=== PATIENT | female | born 1980 | race Hispanic/Latino ===

== ENCOUNTER 2021-07-04 01:11 | Emergency (ER) | payer SELFPAY ==
[2021-07-04 02:06] LABS: Absolute Lymphocytes (CBC) 1.9 K/uL (0.7-4.9); Basophils % 1.3 % (0-1.3); Lymphocytes % 32.5 % (15.3-44.8); MPV 8.3 fL (7.6-11.3); RBC Red Blood Cell Count 4.24 M/uL (3.86-4.86)
[2021-07-04 02:35] LABS: Albumin 3.9 g/dL (3.4-5.0); Bilirubin Direct 0.3 mg/dL (0-0.2); Potassium 3.4 mmol/L (3.5-5.1); Protein, Total 7.7 g/dL (6.4-8.2)
--- NOTE | 2021-07-04 03:27 | ER ---
Nurse's Notes [facility] Name: Aki Hughes Age: 40 yrs Sex: Female : 1980 Arrival Date: 07/04/2021 Time: :14 Bed 5 Private MD: Diagnosis: Abdominal pain. GERD Presentation: 07/04 01:28 Chief complaint: Patient states: she is having some abdominal burning radiating around bb to her back x 2 months with nausea. Coronavirus screen: At this time, the client does not indicate any symptoms associated with coronavirus-19. Ebola Screen: No symptoms or risks identified at this time. Initial Sepsis Screen: Does the patient meet any 2 criteria? No. Patient's initial sepsis screen is negative. Does the patient have a suspected source of infection? No. Patient's initial sepsis screen is negative. Risk Assessment: Do you want to hurt yourself or someone else? Patient reports no desire to harm self or others. Onset of symptoms was April 2021. 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 - Social history:: Smoking status: Patient reports the use of cigarette tobacco products, smokes one pack cigarettes per day. Patient uses alcohol, occasionally. Patient/guardian denies using street drugs. Screenin:57 Abuse screen: Denies threats or abuse. Denies injuries from another. Nutritional lp1 screening: No deficits noted. Tuberculosis screening: No symptoms or risk factors identified. Fall Risk None identified. Assessment: 01:56 General: Appears in no apparent distress. Behavior is calm, cooperative. Pain: Pain: lp1 Complains of pain in general abdomen Quality of pain is described as burning. Neuro: Level of Consciousness is awake, alert, obeys commands. Cardiovascular: Patient's skin is warm and dry. Respiratory: Respiratory effort is even, unlabored. GI: Abdomen is round non-distended, Bowel sounds present X 4 quads. Reports lower abdominal pain, upper abdominal pain. : No signs and/or symptoms were reported regarding the genitourinary system. EENT: No signs and/or symptoms were reported regarding the EENT system. Derm: Skin is pink, warm \T\ dry. Musculoskeletal: No deficits noted. 03:43 Reassessment: Patient appears in no apparent distress at this time. Patient is alert, lp1 oriented x 3, equal unlabored respirations, skin warm/dry/pink. Patient states feeling better. Vital Signs: 01:28 BP 142 / 96; Pulse 71; Resp 16 S; Temp 97.8(O); Pulse Ox 100% on R/A; Weight 62.6 kg bb (R); Height 5 ft. 5 in. (165.10 cm) (R); Pain 8/10; 02:30 BP 127 / 93; Pulse 70; Resp 16; Pulse Ox 100% on R/A; lp1 03:30 BP 139 / 96; Pulse 72; Resp 16; Pulse Ox 100% on R/A; lp1 01:28 Body Mass Index 22.96 (62.60 kg, 165.10 cm) bb ED Course: 01:14 Patient arrived in ED. bp1 01:22 Rico Aquino MD is Attending Physician. pkl 01:30 Triage completed. bb 01:30 Arm band placed on Patient placed in an exam room, on a stretcher, on pulse oximetry. bb 01:55 Initial lab(s) drawn, by pa, sent to lab. Inserted saline lock: 20 gauge in right lp1 antecubital area, using aseptic technique. Blood collected. 01:56 Ana Maria Avila, TIO is Primary Nurse. lp1 01:57 Patient has correct armband on for positive identification. lp1 03:11 ETOH Level Sent. bs2 03:18 US Abdomen Limited Sent. bs2 03:21 US Abdomen Limited In Process Unspecified. EDMS 03:42 No provider procedures requiring assistance completed. IV discontinued, No lp1 redness/swelling at site. Pressure dressing applied. Administered Medications: 01:55 Drug: NS 0.9% 1000 ml Route: IV; Rate: 125 ml/hr; Site: right antecubital; lp1 03:44 Follow up: IV Status: Completed infusion; IV converted to saline lock; IV Intake: 500ml lp1 01:55 Drug: GI Cocktail without - (Maalox Suspension 30 ml, Lidocaine Liquid 2 % 15 bs2 ml) Route: PO; 03:41 Follow up: Response: No adverse reaction lp1 03:41 Not Given (Patient Refused): Zofran (Ondansetron) 4 mg IVP once; over 2 minutes lp1 03:41 Drug: K-Dur (potassium chloride) 20 mEq Route: PO; lp1 03:43 Follow up: Response: Medication administered at discharge. lp1 03:41 Drug: Tylenol 650 mg Route: PO; lp1 03:44 Follow up: Response: Medication administered at discharge. lp1 03:41 Drug: Motrin (ibuprofen) 400 mg Route: PO; lp1 03:44 Follow up: Response: Medication administered at discharge. lp1 Intake: 03:44 IV: 500ml; Total: 500ml. lp1 Outcome: 03:27 Discharge ordered by . pkl 03:42 Discharged to home ambulatory. lp1 03:42 Condition: good 03:42 Discharge instructions given to patient, Instructed on discharge instructions, follow up and referral plans. medication usage, Demonstrated understanding of instructions, follow-up care, medications, Prescriptions given X 2. 03:43 Patient left the ED. lp1 Signatures: Dispatcher [employer] EDMS Rico Aquino MD MD pkl Vandana Bhatti, RN RN Ana Maria Lyon RN RN lp1 Margareth Dunbar Bridget, RN RN bs2 Corrections: (The following items were deleted from the chart) 01:58 01:56 Pain: lp1 lp1 01:58 01:56 Neuro: Level of Consciousness is awake, alert, obeys commands, lp1 lp1
--- NOTE | 2021-07-04 03:27 | EDPHYS ---
Physician Documentation [facility] Name: Aki Hughes Age: 40 yrs Sex: Female : 1980 Arrival Date: 07/04/2021 Time: :14 Bed 5 Private MD: ED Physician Rico Aquino HPI: 07/04 01:37 This 40 yrs old Female presents to ER via Ambulatory with complaints of pkl Abdominal Burn. 01:37 The patient presents with abdominal pain in the upper abdomen. Onset: The pkl symptoms/episode began/occurred 2 month(s) ago. The symptoms do not radiate. 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 - Social history:: Smoking status: Patient reports the use of cigarette tobacco products, smokes one pack cigarettes per day. Patient uses alcohol, occasionally. Patient/guardian denies using street drugs. ROS: 01:37 Eyes: Negative for injury, pain, redness, and discharge, ENT: Negative for injury, pkl pain, and discharge, Neck: Negative for injury, pain, and swelling, Cardiovascular: Negative for chest pain, palpitations, and edema, Respiratory: Negative for shortness of breath, cough, wheezing, and pleuritic chest pain. 01:37 Abdomen/GI: Positive for abdominal pain, of the right upper quadrant and left upper quadrant. 01:37 Back: Negative for acute changes. 01:37 : Negative for urinary symptoms. 01:37 MS/extremity: Negative for acute changes. 01:37 Skin: Negative for rash. 01:37 Neuro: Negative for altered mental status, loss of consciousness. Exam: 01:37 Head/Face: Normocephalic, atraumatic. Eyes: Pupils equal round and reactive to light, pkl extra-ocular motions intact. Lids and lashes normal. Conjunctiva and sclera are non-icteric and not injected. Cornea within normal limits. Periorbital areas with no swelling, redness, or edema. ENT: Nares patent. No nasal discharge, no septal abnormalities noted. Tympanic membranes are normal and external auditory canals are clear. Oropharynx with no redness, swelling, or masses, exudates, or evidence of obstruction, uvula midline. Mucous membranes moist. Neck: Trachea midline, no thyromegaly or masses palpated, and no cervical lymphadenopathy. Supple, full range of motion without nuchal rigidity, or vertebral point tenderness. No Meningismus. Chest/axilla: Normal chest wall appearance and motion. Nontender with no deformity. No lesions are appreciated. Cardiovascular: Regular rate and rhythm with a normal S1 and S2. No gallops, murmurs, or rubs. Normal PMI, no JVD. No pulse deficits. Respiratory: Lungs have equal breath sounds bilaterally, clear to auscultation and percussion. No rales, rhonchi or wheezes noted. No increased work of breathing, no retractions or nasal flaring. 01:37 Abdomen/GI: Bowel sounds: normal, Palpation: soft, mild abdominal tenderness, in the right upper quadrant and left upper quadrant. 01:37 Back: Exam negative for acute changes. 01:37 : Exam negative for acute changes. 01:37 Musculoskeletal/extremity: Exam is negative for acute changes. 01:37 Skin: Exam negative for rash. 01:37 Neuro: Orientation: is normal, Mentation: is normal, Cranial nerves: grossly normal, Motor: is normal. Vital Signs: 01:28 BP 142 / 96; Pulse 71; Resp 16 S; Temp 97.8(O); Pulse Ox 100% on R/A; Weight 62.6 kg bb (R); Height 5 ft. 5 in. (165.10 cm) (R); Pain 8/10; 02:30 BP 127 / 93; Pulse 70; Resp 16; Pulse Ox 100% on R/A; lp1 03:30 BP 139 / 96; Pulse 72; Resp 16; Pulse Ox 100% on R/A; lp1 01:28 Body Mass Index 22.96 (62.60 kg, 165.10 cm) MDM: 01:22 Patient medically screened. pkl 03:23 Data reviewed: vital signs, nurses notes, lab test result(s), radiologic studies, pkl ultrasound. ED course: Discussed lab and imaging studies with patient. Advised to follow up with [employer] [employer] [facility] in 2 to 3 days for further evaluations. To return if necessary. Patient understood instructions. 07/04 01:35 Order name: Basic Metabolic Panel; Complete Time: 02:42 pkl 07/04 01:35 Order name: CBC with Diff; Complete Time: 02:09 pkl 07/04 01:35 Order name: Hepatic Function; Complete Time: 02:42 pkl 07/04 01:35 Order name: Lipase; Complete Time: 02:42 pkl 07/04 01:40 Order name: ETOH Level pkl 07/04 01:40 Order name: UDS pkl 07/04 01:36 Order name: US Abdomen Limited pkl 07/04 01:40 Order name: Alcohol Serum/Plasma; Complete Time: 02:20 EDMS 07/04 01:35 Order name: IV Saline Lock; Complete Time: 01:55 pkl 07/04 01:35 Order name: Labs collected and sent; Complete Time: 01:55 pkl Administered Medications: 01:55 Drug: NS 0.9% 1000 ml Route: IV; Rate: 125 ml/hr; Site: right antecubital; lp1 03:44 Follow up: IV Status: Completed infusion; IV converted to saline lock; IV Intake: 500ml lp1 01:55 Drug: GI Cocktail without - (Maalox Suspension 30 ml, Lidocaine Liquid 2 % 15 bs2 ml) Route: PO; 03:41 Follow up: Response: No adverse reaction lp1 03:41 Not Given (Patient Refused): Zofran (Ondansetron) 4 mg IVP once; over 2 minutes lp1 03:41 Drug: K-Dur (potassium chloride) 20 mEq Route: PO; lp1 03:43 Follow up: Response: Medication administered at discharge. lp1 03:41 Drug: Tylenol 650 mg Route: PO; lp1 03:44 Follow up: Response: Medication administered at discharge. lp1 03:41 Drug: Motrin (ibuprofen) 400 mg Route: PO; lp1 03:44 Follow up: Response: Medication administered at discharge. lp1 Disposition Summary: 07/04/21 03:27 Discharge Ordered Location: Home pkl Problem: new pkl Symptoms: have improved pkl Condition: Stable pkl Diagnosis - Abdominal pain. GERD pkl Followup: pkl - With: Private Physician - When: 2 - 3 days - Reason: Re-evaluation by your physician Discharge Instructions: - Discharge Summary Sheet pkl Forms: - Medication Reconciliation Form pkl - Thank You Letter pkl - Antibiotic Education pkl - Prescription Opioid Use pkl Prescriptions: - Protonix 40 mg Oral Tablet - take 1 tablet by ORAL route once daily; 30 tablet; Refills: 0, Product pkl Selection Permitted - Zofran 4 mg Oral Tablet - take 1 tablet by ORAL route every 12 hours As needed; 10 tablet; Refills: 0, pkl Product Selection Permitted Signatures: Dispatcher [employer] Rico Thomson MD MD pkl Vandana Bhatti RN RN bb Ana Maria Avila RN RN lp1 Bonita Goodman RN RN bs2
[2021-07-04] MEDS ORDERED: POTASSIUM CL SA 10 MEQ TAB PO ONE (03:39)
[2021-07-04] MEDS ORDERED: IBUPROFEN 400 MG TAB ONE (03:39)
[2021-07-04] MEDS ORDERED: ACETAMINOPHEN 325 MG TABLET ONE (03:39)
[2021-07-04 03:56] VITALS: TEMP 97.8; O2SAT 100
[2021-07-04 04:00] VITALS: BP 139/96
--- NOTE | 2021-07-04 08:32 | RAD REPORT ---
EXAM DESCRIPTION: US - Abdomen Exam Limited - 07/04/2021 3:22 am CLINICAL HISTORY: ABD PAIN COMPARISON: No comparisons FINDINGS: The gallbladder demonstrates no gallstones. No pericholecystic fluid or gallbladder wall t hickening. The common bile duct is normal measuring 2 mm. Mild sludge. The liver demonstrates no findings of intrahepatic biliary dilatation. IMPRESSION: Negative for cholelithiasis or sonographic evidence of acute cholecystitis. No biliary d uctal dilatation.
== END 2021-07-04 03:43 | disposition home or self-care (01) ==
LOC: ER 01:11
DX: K21.9 Gastro-esophageal reflux disease without esophagitis (principal); F17.210 Nicotine dependence, cigarettes, uncomplicated
CPT/HCPCS: 36415; 76705; 80048; 80076; 80320; 83690; 85025; 96360; 96361; 99284

== ENCOUNTER 2021-07-24 12:00 | Emergency (ER) | payer SELFPAY ==
--- OUTSIDE RECORDS SUMMARY | 2021-07-24 12:02 | XMS REPORT | Continuity of Care Document ---
:1980 Author Organization [facility] t Address [address] [place] [address] Care Team Providers Name Role Phone PCP, DOES NOT HAVE A Primary Care Physician Unavailable Carl SANTANA Attending Clinician Unavailable Carl Olivera Attending Clinician Carl SANTANA Admitting Clinician Unavailable Problems Condition Condition Condition Status Onset Resolution Last Treating Co mments Source Name Details Category Date Date Treatment Clinician Date No known No known Disease Unive rs active active ity of problems problems [facility] Allergies, Adverse Reactions, Alerts Allergy Allergy Status Severity Reaction(s) Onset Inactive Treating Comm ents Source Name Type Date Date Clinician NO KNOWN Drug Active Univers ALLERGIE Class ity of S [facility] Social History Social Habit Start Date Stop Date Quantity Comments Source Exposure to Not sure [facility] SARS-CoV-2 (event) Medica l Branch Sex Assigned At [birth year] [facility] 00:00:00 00:00:00 [facility] Smoking Status Start Date Stop Date Source Unknown if ever smoked [facility] Medications Ordered Filled Start Stop Current Ordering Indication Dosage Frequency Signature Comments Components Source Medication Medication Date Date Medication? Clinician (SIG) Name Name dicyclomine 2020-08 No 20mg 20 mg, Uni vers (BENTYL) -16 16 Oral, ity of tablet 20 04:45: 03:45 [place]CE[place] dose, On Medical Mon Branch 07/05/21 at 2245, SHALA ondansetron 2020-08 No 4mg 4 mg, Slow Univers (ZOFRAN 09-05 IV Push, ity of (PF)) 03:15: 02:14 ONCE, 1 [place] injection 4 00 :00 dose, On Medi chente mg [facility] 07/05/21 at 2115, SHALA iopamidol 2020-08- No [id number] 100mL 100 mL, Univers (ISOVUE 09-05 Intravenou ity o f 370-500 mL) 03:15: 02:01 s, ONCE, 1 [place] injection 00 :00 dose, On Medica l 100 mL [facility] Branch 07/05/21 at 2115, Routine NaCl 0.9% 2020-08 No 1000mL at 999 Uni vers (NS) bolus 09-05 mL/hr, ity of infusion 01:45: 02:25 1,000 mL, [place] as 1,000 mL 00 :00 IV Medical Infusion, Branch ONCE, 1 dose, On [facility] 07/05/21 at 1945, SHALA dicyclomine 2020-08- Yes [id number] 20mg Take 1 Univers 20 mg 09-04 tablet by ity of tablet 00:00: 05:59 mouth 4 [place] 00 :00 (four) Medical times [place] daily for 7 days. Vital Signs Vital Name Observation Time Observation Value Comments Source Systolic blood 2021-07-06 02:56:00 127 mm[Hg] [facility] Diastolic blood 2021-07-06 02:56:00 85 mm[Hg] Unive [facility] Heart rate 2021-07-06 02:56:00 72 /min [facility] Body temperature 2021-07-06 02:56:00 36.72 [place] [facility] Respiratory rate 2021-07-06 02:56:00 18 /min [facility] Oxygen saturation in 2021-07-06 02:56:00 99 /min [facility] Arterial blood by [place] Med[facility]hente Pulse oximetry Branch Body weight 2021-07-06 00:26:00 59.875 kg [facility] Procedures Procedure Date / Time Performed Performing Clinician Millicent e CT ABDOMEN PELVIS W 2021-07-06 02:03:02 Arcadio Santana [facility] US GALL BLADDER 2021-07-06 01:40:41 Arcadio Santana [facility] POCT TEST 2021-07-06 01:23:00 Arcadio Santana [facility] URINALYSIS 2021-07-06 01:10:00 Arcadio Santana [facility] LIPASE 2021-07-06 01:00:00 Arcadio Santana [facility] COMP. METABOLIC PANEL 2021-07-06 01:00:00 [id number] CBC WITH DIFF 2021-07-06 01:00:00 Arcadio Santana [facility] CONSENT/REFUSAL FOR 2021-07-06 00:23:12 Doctor Unassigned, No [facility] DIAGNOSIS AND Name [facility] TREATMENT Encounters Start End Encounter Admission Attending Care Care Encounter Source Date/Time Date/Time Type Type Clinicians Facility Department ID 2021-07-05 2021-07-05 Emergency X JENISEMARCUS, [facility] ERT [id number] Univers 18:28:00 21:53:00 ARCADIO carver [facility] 2021-07-05 2021-07-05 Emergency Ibikunle, TRAUMA [id number] Univers 18:28:00 21:53:00 Arcadio Henry [facility] [id number] [id number] [facility] [id number] [address] Results Test Description Test Time Test Comments Results Result Comments Source POCT TEST 2021-07-06 01:23:00 Test Item Value Reference Range Interpretation Comme nts POCT PREG (test code = 1605) NEGATIVE On board controls acceptable with C Line (test code = 3574) PRESENT Lab Interpretation (test code = 26851-1) Normal [facility]
[2021-07-24 12:43] LABS: Urine Blood Trace-lysed (Negative); Urine Glucose Negative (Negative); Urine Protein Negative (Negative); Urine Specific Gravity 1.025 (1.005-1.030)
[2021-07-24 12:44] LABS: Absolute Lymphocytes (CBC) 1.8 K/uL (0.7-4.9); Basophils % 0.5 % (0-1.3); Lymphocytes % 16.1 % (15.3-44.8); MPV 8.2 fL (7.6-11.3); RBC Red Blood Cell Count 4.53 M/uL (3.86-4.86)
[2021-07-24] MEDS ORDERED: NA CHLORIDE 0.9% 1,000 ML ONE (12:52)
[2021-07-24] MEDS ORDERED: ONDANSETRON 4 MG/2 ML VIAL ONE (12:52)
[2021-07-24 12:57] LABS: Urine Specific Gravity/Preg 1.025 (1.005-1.030)
[2021-07-24 13:08] LABS: Albumin 4.2 g/dL (3.4-5.0); Bilirubin Direct 0.2 mg/dL (0-0.2); Bilirubin Total 0.7 mg/dL (0.2-1.0); Potassium 3.3 mmol/L (3.5-5.1); Protein, Total 8.3 g/dL (6.4-8.2)
[2021-07-24 13:11] LABS: Urine Bacteria >50 /HPF (<20); Urine Mucus 1+ /HPF (NONE SEEN)
--- NOTE | 2021-07-24 14:01 | ER ---
Nurse's Notes [facility] Name: Aki Hughes Age: 40 yrs Sex: Female : 1980 Arrival Date: 07/24/2021 Time: 12:03 Bed 2 Private MD: Diagnosis: Nausea;UTI/ Urinary tract infection, site not specified Presentation: 07/24 12:07 Chief complaint: Patient states: Vomiting since yesterday Denies diarrhea or coughing. vg1 Coronavirus screen: Vaccine status: Patient reports receiving the 2nd dose of the covid vaccine. Ebola Screen: Patient negative for fever greater than or equal to 101.5 degrees Fahrenheit, and additional compatible Ebola Virus Disease symptoms. Initial Sepsis Screen: Does the patient meet any 2 criteria? HR > 90 bpm. Risk Assessment: Do you want to hurt yourself or someone else? Patient reports no desire to harm self or others. Onset of symptoms was July 23, 2021. 12:07 Method Of Arrival: Ambulatory [facility] 12:07 Acuity: ALDO 3 vg1 13:38 Initial Sepsis Screen: Does the patient have a suspected source of infection? No. ll3 Patient's initial sepsis screen is negative. Triage Assessment: 12:09 General: Appears in no apparent distress. uncomfortable, Behavior is cooperative, vg1 anxious. Pain: Denies pain. GI: Abdomen is flat, Reports nausea, vomiting, since 07/23/21. 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 - Social history:: Smoking status: Reported history of juuling and/or vaping. - Family history:: not pertinent. - Hospitalizations: : No recent hospitalization is reported. Screenin:38 Abuse screen: Denies threats or abuse. Nutritional screening: No deficits noted. ll3 Tuberculosis screening: No symptoms or risk factors identified. Fall Risk Assessment: 12:30 General: Appears in no apparent distress. comfortable, Behavior is calm, cooperative, ll3 combative, Reports feeling ill for 12-24 hours. Pain: Denies pain. Neuro: No deficits noted. Level of Consciousness is awake, alert, obeys commands, Oriented to person, place, time, situation, Speech is normal, Facial symmetry appears normal. Cardiovascular: Patient's skin is warm and dry. Respiratory: Airway is patent Respiratory effort is even, unlabored, Respiratory pattern is regular, symmetrical. GI: Reports nausea, vomiting, since Last night, pt states this has been going on for 2-3 months. 12:53 Reassessment: Pt refused EKG, states "I don't want that. I want like an ultrasound or jl7 something." ERD notified. Vital Signs: 12:07 BP 152 / 103; Pulse 116; Resp 18; Temp 97.9(O); Pulse Ox 100% ; Weight 62.14 kg; Height vg1 5 ft. 5 in. (165.10 cm); Pain 0/10; 13:30 BP 144 / 95; Pulse 97; Resp 15; Pulse Ox 100% ; jl7 12:07 Body Mass Index 22.80 (62.14 kg, 165.10 cm) vg1 ED Course: 12:03 Patient arrived in ED. ds1 12:09 Triage completed. vg1 12:09 Arm band placed on. vg1 12:12 Hugo Marquis MD is Attending Physician. rn 12:42 Kirill Gupta, TIO is Primary Nurse. ll3 12:43 Initial lab(s) drawn, by me, sent to lab. Urine collected: clean catch specimen, jl7 cloudy. Inserted saline lock: 20 gauge in right antecubital area, using aseptic technique. Blood collected. 12:44 Patient has correct armband on for positive identification. Bed in low position. Call jl7 light in reach. Side rails up X 1. Pulse ox on. NIBP on. 14:18 No provider procedures requiring assistance completed. IV discontinued, intact, jl7 bleeding controlled, No redness/swelling at site. Pressure dressing applied. Administered Medications: 13:01 Drug: NS 0.9% 1000 ml Route: IV; Rate: 1000 ml; Site: right antecubital; ll3 14:00 Follow up: Response: No adverse reaction; IV Status: Completed infusion; IV Intake: jl7 1000ml 13:01 Drug: Zofran (Ondansetron) 4 mg Route: IVP; Site: right antecubital; ll3 13:44 Follow up: Response: No adverse reaction; Marked relief of symptoms jl7 Intake: 14:00 IV: 1000ml; Total: 1000ml. jl7 Outcome: 14:00 Discharge ordered by . rn 14:19 Discharged to home ambulatory. jl7 14:19 Condition: stable 14:19 Discharge instructions given to patient, Instructed on discharge instructions, follow up and referral plans. medication usage, Demonstrated understanding of instructions, follow-up care, medications, Prescriptions given X 2. 14:19 Patient left the ED. jl7 Signatures: Caitlyn Rutherford ds1 Hugo Marquis MD MD rn Alexa Mukherjee RN RN jl7 Shelbi Tanner RN RN vg1 Kirill Gupta RN RN ll3 Corrections: (The following items were deleted from the chart) 12:10 12:09 PSHx: Ligation of fallopian tube; vg1 vg1
--- NOTE | 2021-07-24 14:01 | EDPHYS ---
Physician Documentation [facility] Name: Aki Hughes Age: 40 yrs Sex: Female : 1980 Arrival Date: 07/24/2021 Time: 12:03 Bed 2 Private MD: ED Physician Hugo Marquis HPI: 07/24 13:22 This 40 yrs old Female presents to ER via Ambulatory with complaints of Nausea.rn 13:23 The patient presents to the emergency department with nausea. Onset: The rn symptoms/episode began/occurred yesterday. Possible causes: unknown. The symptoms are aggravated by nothing. The symptoms are alleviated by nothing. Associated signs and symptoms: Pertinent positives: nausea, Pertinent negatives: abdominal pain, fever, GI bleeding, vaginal discharge. Severity of symptoms: At their worst the symptoms were mild in the emergency department the symptoms are unchanged. The patient has experienced similar episodes in the past. The patient has not recently seen a physician. Patient reports nausea for 2 days, denies fever, denies diarrhea, denies blood in stool or dark stool. Denies trauma. Reports has had this problem before and was given Zofran but does not currently have any. No known sick contacts. Denies drug use or alcohol dependence. Patient states quit drinking 3 weeks ago. 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 - Social history:: Smoking status: Reported history of juuling and/or vaping. - Family history:: not pertinent. - Hospitalizations: : No recent hospitalization is reported. ROS: 13:23 Constitutional: Negative for fever, chills, and weight loss, Eyes: Negative for injury, rn pain, redness, and discharge, Neck: Negative for injury, pain, and swelling, Cardiovascular: Negative for chest pain, palpitations, and edema, Respiratory: Negative for shortness of breath, cough, wheezing, and pleuritic chest pain, Abdomen/GI: Negative for abdominal pain, diarrhea, and constipation, Back: Negative for injury and pain, : Negative for injury, bleeding, discharge, and swelling, MS/Extremity: Negative for injury and deformity, Skin: Negative for injury, rash, and discoloration, Neuro: Negative for headache, weakness, numbness, tingling, and seizure. Exam: 13:23 Constitutional: This is a well developed, well nourished patient who is awake, alert, rn and in no acute distress. Head/Face: Normocephalic, atraumatic. Eyes: Periorbital areas with no swelling, redness, or edema. ENT: Dry mucous membranes Cardiovascular: Tachycardic, regular. No pulse deficits. Respiratory: No increased work of breathing, no retractions or nasal flaring. Abdomen/GI: Soft, non-tender Skin: Warm, dry MS/ Extremity: Pulses equal, no cyanosis. Neuro: Awake and alert, GCS 15, oriented to person, place, time, and situation. Cranial nerves II-XII grossly intact. Motor strength 5/5 in all extremities. Sensory grossly intact. Cerebellar exam normal. Normal gait. Vital Signs: 12:07 BP 152 / 103; Pulse 116; Resp 18; Temp 97.9(O); Pulse Ox 100% ; Weight 62.14 kg; Height vg1 5 ft. 5 in. (165.10 cm); Pain 0/10; 13:30 BP 144 / 95; Pulse 97; Resp 15; Pulse Ox 100% ; jl7 12:07 Body Mass Index 22.80 (62.14 kg, 165.10 cm) vg1 MDM: 12:12 Patient medically screened. rn 13:57 ED course: Patient refuses EKG. Patient refuses CT abdomen and pelvis. I spoke with her rn and explained with the nausea and the elevated white blood cell count but I would like to get a CT abdomen pelvis, she declines. Understands risks and benefits to obtaining the CT. Patient states that she just wants nausea medication. Will DC home with antibiotics for possible UTI and as needed Zofran. Given return precautions that she declines to get further work-up or testing in the ER.. 07/24 12:22 Order name: Basic Metabolic Panel; Complete Time: 13:18 rn 07/24 12:22 Order name: CBC with Diff; Complete Time: 13:18 rn 07/24 12:22 Order name: Hepatic Function; Complete Time: 13:18 rn 07/24 12:22 Order name: Lipase; Complete Time: 13:18 rn 07/24 12:22 Order name: Urine Microscopic Only; Complete Time: 13:18 rn 07/24 12:43 Order name: Urine Dipstick-Ancillary; Complete Time: 13:18 EDMS 07/24 12:22 Order name: IV Saline Lock; Complete Time: 12:43 rn 07/24 12:22 Order name: Labs collected and sent; Complete Time: 12:43 rn 07/24 12:22 Order name: EKG; Complete Time: 12:23 rn 07/24 12:47 Order name: Urine --Ancillary (enter results); Complete Time: 13:18 eb 07/24 13:13 Order name: Urine Culture EDWY 07/24 12:22 Order name: Urine Dipstick-Ancillary (obtain specimen); Complete Time: 12:43 rn 07/24 12:22 Order name: Urine Test (obtain specimen); Complete Time: 12:43 rn Administered Medications: 13:01 Drug: NS 0.9% 1000 ml Route: IV; Rate: 1000 ml; Site: right antecubital; ll3 14:00 Follow up: Response: No adverse reaction; IV Status: Completed infusion; IV Intake: jl7 1000ml 13:01 Drug: Zofran (Ondansetron) 4 mg Route: IVP; Site: right antecubital; ll3 13:44 Follow up: Response: No adverse reaction; Marked relief of symptoms jl7 Disposition Summary: 07/24/21 14:00 Discharge Ordered Location: Home rn Problem: new rn Symptoms: have improved rn Condition: Stable rn Diagnosis - Nausea rn - UTI/ Urinary tract infection, site not specified rn Followup: rn - With: Private Physician - When: As needed - Reason: Recheck today's complaints, Re-evaluation by your physician Discharge Instructions: - Discharge Summary Sheet rn - Nausea, Adult rn - Urinary Tract Infection, Adult rn Forms: - Medication Reconciliation Form rn - Thank You Letter rn - Antibiotic newborn photographer - Prescription Opioid Use rn Prescriptions: - ondansetron 4 mg Oral tablet,disintegrating - place 1 tablet by TRANSLINGUAL route every 8 hours As needed; 15 tablet; rn Refills: 0, Product Selection Permitted - Cipro 500 mg Oral Tablet - take 1 tablet by ORAL route every 12 hours for 7 days; 14 tablet; Refills: 0, rn Product Selection Permitted Signatures: Dispatcher [employer] [facility] Hugo Marquis MD MD rn Shelbi Tanner RN RN vg1 Kirill Gupta RN RN 3 Alexa Mukherjee RN jl7 Corrections: (The following items were deleted from the chart) 12:10 12:09 PSHx: Ligation of fallopian tube; vg1 vg1 12:53 12:22 EKG - Nurse/Tech ordered. rn jl7 13:24 13:23 Patient reports nausea for 2 days, denies fever, denies diarrhea, denies blood in rn stool or dark stool. Denies trauma. Reports has had this problem before and was given Zofran but does not currently have any. No known sick contacts. Denies drug use or alcohol dependence.. rn 13:59 13:23 Abdomen Pelvis W Con+CT.RAD.BRZ ordered. EDWY EDMS
[2021-07-24 14:53] VITALS: TEMP 97.9; O2SAT 100
[2021-07-24 14:54] VITALS: BP 144/95
== END 2021-07-24 14:19 | disposition home or self-care (01) ==
LOC: ER 12:00
DX: N39.0 Urinary tract infection, site not specified (principal)
CPT/HCPCS: 36415; 80048; 80076; 81003; 81015; 81025; 83690; 85025; 87077; 87086; 87088; 87186; 96361; 96374; 99284; J2405; J7030

== ENCOUNTER 2021-11-16 23:09 | Emergency (ER) | payer SELFPAY ==
--- OUTSIDE RECORDS SUMMARY | 2021-11-16 23:12 | XMS REPORT | Continuity of Care Document ---
:1980 Author Organization [facility] t Address [address] [place] [address] Care Team Providers Name Role Phone Pcp, Does Not Have A Primary Care Physician Fellow Attending Clinician Unavailable Carl SANTANA Attending Clinician Unavailable Carl Olivera Attending Clinician Carl SANTANA Admitting Clinician Unavailable Problems Condition Condition Condition Status Onset Resolution Last Treating Co mments Source Name Details Category Date Date Treatment Clinician Date No known No known Disease Unive rs active active ity of problems problems [facility] Allergies, Adverse Reactions, Alerts Allergy Allergy Status Severity Reaction(s) Onset Inactive Treating Comm ents Source Name Type Date Date Clinician NO KNOWN Drug Active Univers ALLERGIE Class ity of S [facility] Social History Social Habit Start Date Stop Date Quantity Comments Source Exposure to Not sure [facility] SARS-CoV-2 (event) Medica l Branch Sex Assigned At [birth year] [facility] 00:00:00 00:00:00 [facility] Smoking Status Start Date Stop Date Source Unknown if ever smoked [facility] Medications Ordered Filled Start Stop Current [...] 00 :00 dose, On Medi chente mg [facility] 07/05/21 at 2115, SHALA iopamidol 2020-08- No [id number] 100mL 100 mL, Univers (ISOVUE 09-05 Intravenou ity o f 370-500 mL) 03:15: 02:01 s, ONCE, 1 [place] injection 00 :00 dose, On Medica l 100 mL [facility] 07/05/21 at 2115, Routine NaCl 0.9% 2020-08 No 1000mL at 999 Uni vers (NS) bolus 09-05 mL/hr, ity of infusion 01:45: 02:25 1,000 mL, [place] as 1,000 mL 00 :00 IV Medical Infusion, Branch ONCE, 1 dose, On [facility] 07/05/21 at 1945, SHALA No known 2020-08 No Univers medications 09-04 ity of 21:23: [address] dicyclomine 2020-08- No [id number] 20mg Take 1 Univers 20 mg 09-04 tablet by ity of tablet 00:00: 05:59 mouth 4 [place] 00 :00 (four) Medical times [place] daily for 7 days. Vital Signs Vital Name Observation Time Observation Value Comments Source Systolic blood 2021-07-06 02:56:00 127 mm[Hg] Univer sity of pressure [facility] Diastolic blood 2021-07-06 02:56:00 85 mm[Hg] [facility] Heart rate 2021-07-06 02:56:00 72 /min [facility] Body temperature 2021-07-06 02:56:00 36.72 [facility] Respiratory rate 2021-07-06 02:56:00 18 /min [facility] Oxygen saturation in 2021-07-06 02:56:00 99 /min [facility] Arterial blood by [place] [facility] Pulse oximetry Branch Body weight 2021-07-06 00:26:00 59.875 kg [facility] Procedures Procedure Date / Time Performed Performing Clinician Millicent stewart CT ABDOMEN PELVIS W 2021-07-06 02:03:02 Lillian Santana [facility] CONTRAST [facility] US GALL BLADDER 2021-07-06 01:40:41 Lillian Santana [facility] POCT TEST 2021-07-06 01:23:00 Lillian Santana [facility] URINALYSIS 2021-07-06 01:10:00 Lillian Santana [facility] LIPASE 2021-07-06 01:00:00 Lillian Santana [facility] COMP. METABOLIC PANEL 2021-07-06 01:00:00 [id number] CBC WITH DIFF 2021-07-06 01:00:00 Lillian Santana [facility] CONSENT/REFUSAL FOR 2021-07-06 00:23:12 Doctor Unassigned, [facility] DI[facility]IS AND Name [facility] TREATMENT Encounters Start End Encounter Admission Attending Care Care Encounter Source Date/Time Date/Time Type Type Clinicians Facility Department ID 2021-07-26 2021-07-26 Letter Fellow, Renay [facility] [id number] Univers 00:00:00 00:00:00 (Out) SPECIALTY [id number] ity of CARE [id number] [facility] AT [id number] Nd dical VICTORKatia [address] [place] 2021-07-05 2021-07-05 Emergency X ESTHER, CRYSTAL ERT [id number] Univers 18:28:00 21:53:00 [facility] 2021-07-05 2021-07-05 Emergency Ibikunle, TRAUMA [id number] Univers 18:28:00 21:53:00 Lillian [facility] [id number] ity of [id number] [facility] [id number] [address] Results Test Description Test Time Test Comments Results Result Comments Source POCT TEST 2021-07-06 01:23:00 Test Item Value Reference Range Interpretation Comme nts POCT PREG (test code = 1605) NEGATIVE On board controls acceptable with C Line (test code = 3574) PRESENT Lab Interpretation (test code = 89461-2) [facility]
[2021-11-17] MEDS ORDERED: NA CHLORIDE 0.9% 1,000 ML ONE (00:41)
[2021-11-17 01:05] LABS: Absolute Lymphocytes (CBC) 1.3 K/uL (0.7-4.9); Hematocrit 40.5 % (36.0-45.0); Lymphocytes % 15.9 % (15.3-44.8); MPV 8.3 fL (7.6-11.3); RBC Red Blood Cell Count 4.38 M/uL (3.86-4.86)
[2021-11-17 01:15] LABS: BUN Blood Urea Nitrogen 7 mg/dL (7-18); Bicarbonate 28 mmol/L (21-32); Glucose Level 106 mg/dL (74-106); Potassium 3.6 mmol/L (3.5-5.1); Sodium Level 132 mmol/L (136-145); Troponin High Sensitivity 3.3 pg/mL (<58.9)
[2021-11-17] MEDS ORDERED: MAGNES/ALUMIN/SIMET 30ML UCUP ONE (01:22)
[2021-11-17] MEDS ORDERED: LIDOCAINE VISCOUS 2% SOLN 15 ML UDC ONE (01:22)
--- NOTE | 2021-11-17 01:37 | ER ---
Nurse's Notes [facility] Name: Aki Hughes Age: 41 yrs Sex: Female : 1980 Arrival Date: 11/16/2021 Time: 23:11 Bed 6 Private MD: Diagnosis: Syncope Presentation: 11/16 23:23 Chief complaint: Patient states: sitting outside with family. started feeling hot all lg3 over. went to get cool air inside and passed out. family states syncopal episode lasted for around 30 seconds. vomited shortly after episode. Coronavirus screen: Client denies travel out of the [place] in the last 14 days. At this time, the client does not indicate any symptoms associated with coronavirus-19. Ebola Screen: No symptoms or risks identified at this time. Initial Sepsis Screen: Does the patient meet any 2 criteria? No. Patient's initial sepsis screen is negative. Does the patient have a suspected source of infection? No. Patient's initial sepsis screen is negative. Risk Assessment: Do you want to hurt yourself or someone else? Patient reports no desire to harm self or others. Onset of symptoms was November 16, 2021 at 23:00. 23:23 Method Of Arrival: Ambulatory lg3 23:23 Acuity: ALDO 3 lg3 Triage Assessment: 23:28 General: Appears in no apparent distress. comfortable, Behavior is calm, cooperative. lg3 Pain: Complains of pain in abdomen Pain currently is 5 out of 10 on a pain scale. EENT: No deficits noted. No signs and/or symptoms were reported regarding the EENT system. Neuro: No deficits noted. Level of Consciousness is awake, alert, obeys commands, Oriented to person, place, time, situation, Reports dizziness. Cardiovascular: No deficits noted. Denies chest pain, shortness of breath. Respiratory: No deficits noted. Airway is patent Trachea midline Respiratory effort is even, unlabored, Respiratory pattern is regular, symmetrical. GI: No deficits noted. Abdomen is flat, non-distended, Reports lower abdominal pain, upper abdominal pain. : No deficits noted. No signs and/or symptoms were reported regarding the genitourinary system. Derm: No deficits noted. No signs and/or symptoms reported regarding the dermatologic system. Skin is intact, is healthy with good turgor, Skin is dry. Musculoskeletal: No deficits noted. No signs and/or symptoms reported regarding the musculoskeletal system. Circulation, motion, and sensation intact. Range of motion: intact in all extremities. 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 - Social history:: Smoking status: Patient reports the use of cigarette tobacco products, smokes one-half pack cigarettes per day, Reported history of juuling and/or vaping. Patient uses alcohol, occasionally. street drugs, marijuana. Screenin:31 Abuse screen: Denies threats or abuse. Denies injuries from another. Nutritional lg3 screening: No deficits noted. Tuberculosis screening: No symptoms or risk factors identified. Fall Risk None identified. Assessment: 11/17 00:00 General: Appears in no apparent distress. Behavior is calm, cooperative. Neuro: Level bb of Consciousness is awake, alert, obeys commands, Oriented to person, place, time, situation, Gait is steady, Speech is normal. Cardiovascular: Capillary refill < 3 seconds Patient's skin is warm and dry. Rhythm is sinus rhythm. Respiratory: Respiratory effort is even, unlabored, Respiratory pattern is regular. GI: Abdomen is non-distended. Derm: Skin is pink, warm \T\ dry. Musculoskeletal: Circulation, motion, and sensation intact. 00:51 Reassessment: Patient is alert, oriented x 3, equal unlabored respirations, skin bb warm/dry/pink. awaiting diagnostic results. 02:00 Reassessment: Patient and/or family updated on plan of care and expected duration. Pain al4 level reassessed. Patient is alert, oriented x 3, equal unlabored respirations, skin warm/dry/pink. 02:05 Reassessment: ERPA states no need for POC blood glucose. al4 Vital Signs: 11/16 23:23 BP 136 / 90; Pulse 95; Resp 16 S; Temp 98.6(O); Pulse Ox 100% on R/A; Weight 61.23 kg lg3 (R); Height 5 ft. 4 in. (162.56 cm) (R); Pain /10; 11/17 00:52 BP 118 / 75; Pulse 87; Resp 20; Pulse Ox 96% on R/A; bb 01:51 BP 118 / 78 Supine; Pulse 87; al4 01:51 BP 123 / 84 Sitting; Pulse 94; al4 01:51 BP 116 / 90 Standing; Pulse 86; Resp 16 S; Pulse Ox 100% on R/A; al4 11/16 23:23 Body Mass Index 23.17 (61.23 kg, 162.56 cm) lg3 ED Course: 11/16 23:11 Patient arrived in ED. kz 23:28 Triage completed. lg3 23:28 Arm band placed on right wrist. lg3 23:54 Ryan Sanders PA is PHCP. jr8 23:54 Matt Esquivel MD is Attending Physician. jr8 11/17 00:00 Patient has correct armband on for positive identification. Placed in gown. Bed in low bb position. Call light in reach. Side rails up X 1. advanced practice nurse psychotherapist on. Pulse ox on. NIBP on. Warm blanket given. 00:00 No provider procedures requiring assistance completed. bb 00:19 XRAY Chest (1 view) In Process Unspecified. EDMS 00:49 Vandana Bhatti, TIO is Primary Nurse. bb 00:51 Initial lab(s) drawn, by me, sent to lab. Urine collected: clean catch specimen, EKG bb done, by ED staff, reviewed by Ryan MCKEE. Inserted saline lock: 20 gauge in right antecubital area, using aseptic technique. Blood collected. 01:36 Dmitry Pathak MD is Referral Physician. jr8 02:04 IV discontinued, intact, bleeding controlled, No redness/swelling at site. Pressure al4 dressing applied. Administered Medications: 00:52 Drug: NS 0.9% 1000 ml Route: IV; Rate: 1000 ml; Site: right antecubital; bb 01:27 Follow up: IV Status: Completed infusion; IV Intake: 950ml bb 02:01 Follow up: Response: No adverse reaction; IV Status: Completed infusion; IV Intake: al4 1000ml 01:27 Drug: GI Cocktail without - (Maalox Suspension 30 ml, Lidocaine Liquid 2 % 15 bb ml) Route: PO; 02:01 Follow up: Response: No adverse reaction al4 01:57 Drug: ProTONIX (pantoprazole) 40 mg Route: IVP; Site: right antecubital; al4 Intake: 01:27 IV: 950ml; Total: 950ml. bb 02:01 IV: 1000ml; Total: 1950ml. al4 Outcome: 01:36 Discharge ordered by . goldy 02:03 Discharged to home ambulatory, with family. al4 02:03 Condition: stable 02:03 Discharge instructions given to patient, Instructed on discharge instructions, follow up and referral plans. Demonstrated understanding of instructions, follow-up care. 02:06 Patient left the ED. al4 Signatures: Dispatcher [employer] EDVandana Ramirez RN RN Ryan Bocanegra PA PA jrRosa Juarez RN RN lg3 Harshad Martinez al4 Nohemy Brown Corrections: (The following items were deleted from the chart) 02:01 01:51 BP 116 / 90 Standing; Pulse 86bpm; al4 al4
--- NOTE | 2021-11-17 01:37 | EDPHYS ---
Physician Documentation [facility] Name: Aki Hughes Age: 41 yrs Sex: Female : 1980 Arrival Date: 11/16/2021 Time: 23:11 Bed 6 Private MD: EZEKIEL Physician Matt Esquivel HPI: 11/17 00:45 This 41 yrs old Female presents to ER via Ambulatory with complaints of jr8 Syncope. 00:45 The patient has experienced syncope, became unresponsive. Onset: The symptoms/episode jr8 began/occurred acutely, today. Duration: This was a single episode, that lasted 30 second(s). Context: the episode(s) was witnessed, by family, occurred at home, occurred while the patient was at rest. Associated signs and symptoms: Pertinent positives: lightheadedness, flushness. Current symptoms: Currently, the patient is not experiencing any symptoms, the patient feels back to baseline, no decreased level of consciousness, no confusion, no dysphasia, no headache, no paralysis, no visual changes. The patient has experienced a previous episode. The patient has not recently seen a physician. 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 - Social history:: Smoking status: Patient reports the use of cigarette tobacco products, smokes one-half pack cigarettes per day, Reported history of juuling and/or vaping. Patient uses alcohol, occasionally. street drugs, marijuana. ROS: 11/17 00:45 Eyes: Negative for injury, pain, redness, and discharge, ENT: Negative for injury, jr8 pain, and discharge, Neck: Negative for injury, pain, and swelling, Cardiovascular: Negative for chest pain, palpitations, and edema, Respiratory: Negative for shortness of breath, cough, wheezing, and pleuritic chest pain, Abdomen/GI: Negative for abdominal pain, nausea, vomiting, diarrhea, and constipation, Back: Negative for injury and pain, MS/Extremity: Negative for injury and deformity, Skin: Negative for injury, rash, and discoloration. Neuro: Positive for syncope. Exam: 00:45 Constitutional: This is a well developed, well nourished patient who is awake, alert, jr8 and in no acute distress. Neck: Trachea midline, no thyromegaly or masses palpated, and no cervical lymphadenopathy. Supple, full range of motion without nuchal rigidity, or vertebral point tenderness. No Meningismus. Cardiovascular: Regular rate and rhythm with a normal S1 and S2. No gallops, murmurs, or rubs. Normal PMI, no JVD. No pulse deficits. Respiratory: Lungs have equal breath sounds bilaterally, clear to auscultation and percussion. No rales, rhonchi or wheezes noted. No increased work of breathing, no retractions or nasal flaring. Abdomen/GI: Soft, non-tender, with normal bowel sounds. No distension or tympany. No guarding or rebound. No evidence of tenderness throughout. Back: No spinal tenderness. No costovertebral tenderness. Full range of motion. Skin: Warm, dry with normal turgor. Normal color with no rashes, no lesions, and no evidence of cellulitis. MS/ Extremity: Pulses equal, no cyanosis. Neurovascular intact. Full, normal range of motion. Neuro: Awake and alert, GCS 15, oriented to person, place, time, and situation. Cranial nerves II-XII grossly intact. Motor strength 5/5 in all extremities. Sensory grossly intact. Cerebellar exam normal. Vital Signs: 11/16 23:23 BP 136 / 90; Pulse 95; Resp 16 S; Temp 98.6(O); Pulse Ox 100% on R/A; Weight 61.23 kg lg3 (R); Height 5 ft. 4 in. (162.56 cm) (R); Pain 12/28; 11/17 00:52 BP 118 / 75; Pulse 87; Resp 20; Pulse Ox 96% on R/A; bb 01:51 BP 118 / 78 Supine; Pulse 87; al4 01:51 BP 123 / 84 Sitting; Pulse 94; al4 01:51 BP 116 / 90 Standing; Pulse 86; Resp 16 S; Pulse Ox 100% on R/A; al4 11/16 23:23 Body Mass Index 23.17 (61.23 kg, 162.56 cm) lg3 MDM: 11/16 23:57 Patient medically screened. [facility] 11/17 00:45 Data reviewed: vital signs, nurses notes, lab test result(s), EKG, radiologic studies, [facility] plain films. Data interpreted: Pulse oximetry: on room air is 100 %. Interpretation: normal. Counseling: I had a detailed discussion with the patient and/or guardian regarding: the historical points, exam findings, and any diagnostic results supporting the discharge/admit diagnosis, lab results, radiology results. 11/16 23:57 Order name: Basic Metabolic Panel; Complete Time: 01:16 [facility] 11/16 23:57 Order name: CBC with Diff; Complete Time: :16 [facility] 11/16 23:57 Order name: Magnesium; Complete Time: :16 11/16 23:57 Order name: Troponin HS; Complete Time: :16 11/16 23:57 Order name: XRAY Chest (1 view) [facility] 11/16 23:57 Order name: EKG; Complete Time: 23:58 [facility] 11/16 23:57 Order name: Cardiac monitoring; Complete Time: 00:37 [facility] 11/16 23:57 Order name: EKG - Nurse/Tech; Complete Time: 00:52 [facility] 11/16 23:57 Order name: IV Saline Lock; Complete Time: 00:52 11/16 23:57 Order name: Labs collected and sent; Complete Time: 00:52 11/16 23:57 Order name: O2 Per Protocol; Complete Time: 00:37 [facility] 11/16 23:57 Order name: O2 Sat Monitoring; Complete Time: 00:37 [facility] 11/17 01:17 Order name: Orthostatics; Complete Time: 01:53 [facility] Administered Medications: 00:52 Drug: NS 0.9% 1000 ml Route: IV; Rate: 1000 ml; Site: right antecubital; bb 01:27 Follow up: IV Status: Completed infusion; IV Intake: 950ml bb 02:01 Follow up: Response: No adverse reaction; IV Status: Completed infusion; IV Intake: al4 1000ml 01:27 Drug: GI Cocktail without - (Maalox Suspension 30 ml, Lidocaine Liquid 2 % 15 bb ml) Route: PO; 02:01 Follow up: Response: No adverse reaction al4 01:57 Drug: ProTONIX (pantoprazole) 40 mg Route: IVP; Site: right antecubital; al4 Disposition Summary: 11/17/21 01:36 Discharge Ordered Location: Home jr8 Problem: new jr8 Symptoms: have improved jr8 Condition: Stable jr8 Diagnosis - Syncope jr8 Followup: jr8 - With: Dmitry Pathak MD - When: 2 - 3 days - Reason: Recheck today's complaints, Continuance of care, Re-evaluation by your physician Discharge Instructions: - Discharge Summary Sheet jr8 - Syncope jr8 Forms: - Medication Reconciliation Form jr8 - Thank You Letter jr8 - Antibiotic Education jr8 - Prescription Opioid Use jr8 Addendum: 11/18/2021 06:39 Co-signature as Attending Physician, Matt Esquivel MD I agree with the assessment and c lazaro plan of care. Signatures: Dispatcher [employer] Matt Christiansen MD MD cha Ballard, Brenda RN RN bb Ryan Sanders PA PA 8 Rosa Oreilly RN RN lg3 Harshad Martinez al4
[2021-11-17] MEDS ORDERED: PANTOPRAZOLE 40 MG INJ ONE (01:56)
[2021-11-17 03:41] VITALS: TEMP 98.6
[2021-11-17 03:44] VITALS: BP 116/90; O2SAT 100
--- NOTE | 2021-11-17 07:53 | EKG ---
Test Date: 2021-11-17 Test Time: 00:08:53 [employer] Developer: ZHEN MEASUREMENT RESULTS: Intervals: Rate: 91 KS: 130 QRSD: 82 QT: 354 QTc: 435 [place]: P: 72 KS: 130 QRS: 24 T: 50 INTERPRETIVE STATEMENTS: Normal sinus rhythm Normal ECG No previous ECG available for comparison Electronically Signed On 11-17-21 07:52:26 CDT by Dmitry Pathak
--- NOTE | 2021-11-17 16:30 | RAD REPORT ---
EXAM DESCRIPTION: RAD - Chest Single View - 11/17/2021 12:17 am CLINICAL HISTORY: 41 years, Female, CHEST PAIN COMPARISON: None. FINDINGS: Single view of the chest was obtained portable. No prior films are available for compariso n. The cardiomediastinal silhouette demonstrate to be unremarkable. The heart is not enlarged. The thoracic aorta is unremarkable. Costophrenic angles are sharp. No areas of consolidation or masses are seen. External EKG leads within the [id number] limits diagnosis. The rest of the soft tissue a nd bony structures demonstrate to be unremarkable. IMPRESSION: No acute cardiopulmonary disease. Electronically signed by: Kimo Veronica MD 11/17/2021 12:27 AM CDT Due to temporary technical issues with the PACS/Fluency reporting system, reports are being signed by the in house radiologists without review as a courtesy to insure prompt reporting. The interpreting radiologist is fully responsible for the content of the report.
== END 2021-11-17 02:06 | disposition home or self-care (01) ==
LOC: ER 23:09
DX: R55 Syncope and collapse (principal); F17.210 Nicotine dependence, cigarettes, uncomplicated
CPT/HCPCS: 36415; 71045; 80048; 83735; 84484; 85025; 93005; 96361; 96374; 99284; C9113; J7030